=== PATIENT | female | born 1950 | race Two or more races ===

== ENCOUNTER → 2017-11-25 | Outpatient (CLI) | payer MEDICARE | END | disposition home or self-care (01) | LOC: CFH 14:29 | PROVIDERS: ATTEND Genetic Counselor, MS | DX: N64.4 Mastodynia (principal); N63.20 Unspecified lump in the left breast, unspecified quadrant | CPT/HCPCS: 77066 ==

== ENCOUNTER → 2018-06-24 | Outpatient (CLI) | payer MEDICARE | END | disposition home or self-care (01) | LOC: CFH 07:19 | PROVIDERS: ATTEND Nurse Practitioner Family | DX: K57.32 Diverticulitis of large intestine without perforation or abscess without bleeding (principal); K76.89 Other specified diseases of liver; N95.9 Unspecified menopausal and perimenopausal disorder; M85.80 Other specified disorders of bone density and structure, unspecified site | CPT/HCPCS: 76700 ==

== ENCOUNTER → 2018-07-14 | Outpatient (CLI) | payer MEDICARE ==
[~2018-07-14] MED LIST: OMNIPAQUE 350 MG/ML, 100ML BOTTLE ONE
== END | disposition home or self-care (01) ==
LOC: EDSTATUS 06-28 10:45 → CFH 13:44 → EDSTATUS 14:15
PROVIDERS: ATTEND Nurse Practitioner Family
DX: M85.88 Other specified disorders of bone density and structure, other site (principal); N94.89 Other specified conditions associated with female genital organs and menstrual cycle; M51.36 Other intervertebral disc degeneration, lumbar region; M47.816 Spondylosis without myelopathy or radiculopathy, lumbar region
CPT/HCPCS: 74177; 77080; Q9967

== ENCOUNTER 2019-11-03 08:50 | Outpatient (CLI) | payer MEDICARE ==
[2019-11-03] MEDS ORDERED: CHOL10003 PO (09:20)
[2019-11-03] MEDS ORDERED: ENAL10TA PO (09:20)
[2019-11-03] MEDS ORDERED: oxybutynin PO (09:31)
[2019-11-03 10:06] LABS: ALANINE AMINOTRANSFERASE 28 U/L (12-78); ALBUMIN 3.8 g/dL (3.4-5.0); ANION GAP 6 mmol/L (5-15); CALCIUM 9.4 mg/dL (8.5-10.1); CHLORIDE 111 mmol/L (98-107); CREATININE 0.76 mg/dL (0.55-1.02)
[2019-11-03 10:09] LABS: ALKALINE PHOSPHATASE 72 U/L (45-117); BILIRUBIN,TOTAL 0.4 mg/dL (0.2-1.0); TOTAL PROTEIN 7.3 g/dL (6.4-8.2)
[2019-11-03 10:15] LABS: MICROSCOPIC AUTO
== END 2019-11-03 23:59 | disposition home or self-care (01) ==
LOC: STAR 08:50
PROVIDERS: ATTEND Obstetrics & Gynecology Female Pelvic Medicine and Reconstructive Surgery
DX: Z01.818 Encounter for other preprocedural examination (principal); Z11.59 Encounter for screening for other viral diseases; N93.9 Abnormal uterine and vaginal bleeding, unspecified; N81.10 Cystocele, unspecified; N81.6 Rectocele
CPT/HCPCS: 36415; 80053; 81001; 87635; 93005

== ENCOUNTER 2019-11-04 13:40 | Emergency (ER) | payer MEDICARE ==
[~2019-11-04] VITALS: Ht 157.5 cm; Wt 71.1 kg
[~2019-11-04 13:40] MED LIST changes: +CHOL10003 PO; +ENAL10TA PO; -OMNIPAQUE 350 MG/ML, 100ML BOTTLE ONE; +oxybutynin PO
--- NOTE | 2019-11-04 14:24 | NUR ---
TO ROOM FROM LOBBY. NAD.
--- NOTE | 2019-11-04 15:00 | NUR ---
PT TO US.
[2019-11-04 15:07] LABS: BASOPHILS # (AUTO) 0.02 x10^3/uL (0-0.1); BASOPHILS % (AUTO) 0 % (0-1); EOSINOPHILS # (AUTO) 0.08 x10^3/uL (0-0.4); EOSINOPHILS % (AUTO) 1 % (1-7); LYMPHOCYTES # (AUTO) 2.55 x10^3/uL (1-3.4); LYMPHOCYTES % (AUTO) 36 % (22-44); MD NO; MEAN CORPUSCULAR HEMOGLOBIN 31.1 pg (27.0-34.8); MEAN CORPUSCULAR HGB CONC 32.8 g/dL (32.4-35.8); MEAN PLATELET VOLUME 7.2 fL (7.4-10.4); MONOCYTES # (AUTO) 0.61 x10^3/uL (0.2-0.8); MONOCYTES % (AUTO) 9 % (2-9); NEUTROPHILS # (AUTO) 3.87 x10^3/uL (1.8-6.8); NEUTROPHILS % (AUTO) 54 % (42-75); PLATELET COUNT 269 x10^3/uL (130-400); RED BLOOD COUNT 4.47 x10^6/uL (3.82-5.3); RED CELL DISTRIBUTION WIDTH 13.3 % (9.6-15.2)
[2019-11-04 15:19] LABS: ALANINE AMINOTRANSFERASE 28 U/L (12-78); ALBUMIN 3.8 g/dL (3.4-5.0); ANION GAP 5 mmol/L (5-15); CALCIUM 9.2 mg/dL (8.5-10.1); CHLORIDE 111 mmol/L (98-107); CREATININE 0.61 mg/dL (0.55-1.02)
[2019-11-04 15:21] LABS: ALKALINE PHOSPHATASE 71 U/L (45-117); BILIRUBIN,TOTAL 0.3 mg/dL (0.2-1.0); TOTAL PROTEIN 7.1 g/dL (6.4-8.2)
--- NOTE | 2019-11-04 15:26 | NUR ---
PT TO CT.
[2019-11-04 15:33] LABS: MICROSCOPIC NOT IND
--- NOTE | 2019-11-04 15:55 | NUR ---
ALL RESULTS BACK, PT FOR RECHECK.
[2019-11-04 16:17] VITALS: BP 138/87
== END 2019-11-04 17:08 | disposition home or self-care (01) ==
LOC: ED 16:00
DX: N23 Unspecified renal colic (principal); R31.9 Hematuria, unspecified
CPT/HCPCS: 36415; 74176; 76700; 80053; 81003; 83690; 85025; 99285

== ENCOUNTER 2019-11-07 11:18 | Day surgery (SDC) | payer MEDICARE ==
[~2019-11-07] VITALS: Ht 157.5 cm; Wt 69.8 kg
[~2019-11-07 11:18] MED LIST changes: +BUPIVACAINE/PF 0.25% ONE; +GENTAMICIN 80 MG/2 ML ONE; +VANCOMYCIN 500 MG ONE
[2019-11-07 11:41] VITALS: BP 150/79
[2019-11-07] MEDS ORDERED: LACTATED RINGERS 1,000 ML IV SCH (11:45)
[2019-11-07] MEDS ORDERED: CHLORHEXIDINE 15 ML UDC MM ONE (12:00)
[2019-11-07] MEDS ORDERED: DIAZEPAM 5 MG/ML, 2ML IVPush PRN (13:30)
[2019-11-07] MEDS ORDERED: MIDAZOLAM 1 MG/ML, 2ML IV PRN (13:30)
[2019-11-07] MEDS ORDERED: DIPHENHYDRAMINE 50 MG/ML, 1ML IVPush PRN (13:30)
[2019-11-07] MEDS ORDERED: HYDROmorphone 1 MG/ML, 1ML INJ IVPush PRN (13:30)
[2019-11-07] MEDS ORDERED: MEPERIDINE/PF 25MG/0.5ML IVPush PRN (13:30)
[2019-11-07] MEDS ORDERED: FENTANYL PF 100 MCG/2ML IV PRN (13:30)
[2019-11-07] MEDS ORDERED: LABETALOL 5MG/ML, 20ML IV PRN (13:30)
[2019-11-07] MEDS ORDERED: LORazepam 2 MG/ML, 1ML IVPush PRN (13:30)
[2019-11-07] MEDS ORDERED: HALOPERIDOL 5 MG/ML IV PRN (13:30)
[2019-11-07] MEDS ORDERED: KETOROLAC 30 MG/1 ML IV PRN (13:30)
[2019-11-07] MEDS ORDERED: ONDANSETRON 2MG/ML, 2ML IVPush PRN (13:30)
[2019-11-07] MEDS ORDERED: ALBUTEROL/IPRATROPIUM 2.5MG/0.5MG, 3 ML NPPB PRN (13:30)
[2019-11-07] MEDS ORDERED: HYDROcodone/APAP 7.5-325MG/15ML UDC PO PRN (13:30)
[2019-11-07] MEDS ORDERED: ACETAMINOPHEN 325 MG TABLET PO PRN (13:30)
[2019-11-07] MEDS ORDERED: OXYcodone 5 MG/5 ML ORAL.SOL UDC PO PRN (13:30)
[2019-11-07] MEDS ORDERED: METHOCARBAMOL 1,000 MG in DEXTROSE 5% 100 ML IV PRN (13:30)
[2019-11-07] MEDS ORDERED: EPHEDRINE 50 MG/ML, 1ML IVPush PRN (13:30)
[2019-11-07] MEDS ORDERED: EPHEDRINE 50 MG/ML, 1ML IM PRN (13:30)
[2019-11-07] MEDS ORDERED: METOCLOPRAMIDE 5 MG/ML, 2ML IVPush PRN (13:30)
[2019-11-07] MEDS ORDERED: hydrALAzine 20 MG/ML, 1ML IV PRN (13:30)
[2019-11-07] MEDS ORDERED: DEXAMETHASONE 4 MG/ML, 1ML ONE (13:44)
[2019-11-07] MEDS ORDERED: LIDOCAINE-MPF 2% ,5ML ONE (13:44)
[2019-11-07] MEDS ORDERED: ROCURONIUM 10MG/ML,5ML ONE (13:44)
[2019-11-07] MEDS ORDERED: PROPOFOL 10 MG/ML, 20ML ONE (13:44)
[2019-11-07] MEDS ORDERED: GLYCOPYRROLATE 0.2MG/1ML, 5ML ONE (13:44)
[2019-11-07] MEDS ORDERED: FENTANYL PF 100 MCG/2ML ONE (13:45)
[2019-11-07] MEDS ORDERED: MIDAZOLAM 1 MG/ML, 2ML ONE (13:45)
[2019-11-07] MEDS ORDERED: CEFAZOLIN 1,000 MG ONE (14:54)
== END 2019-11-07 17:10 | disposition home or self-care (01) ==
LOC: OUT 11:18
PROVIDERS: ATTEND Obstetrics & Gynecology Female Pelvic Medicine and Reconstructive Surgery
DX: N81.89 Other female genital prolapse (principal); N39.46 Mixed incontinence; R10.2 Pelvic and perineal pain; N81.11 Cystocele, midline; N81.6 Rectocele; N81.5 Vaginal enterocele; I10 Essential (primary) hypertension; Z79.899 Other long term (current) drug therapy; Z90.710 Acquired absence of both cervix and uterus
CPT/HCPCS: 57265; 57282; 57288; C1771; J0690; J1100; J1580; J2250; J2704; J3010; J3370; J3490; J7120

== ENCOUNTER → 2019-12-15 | Outpatient (CLI) | payer MEDICARE ==
[~2019-12-15] MED LIST changes: -BUPIVACAINE/PF 0.25% ONE; -ENAL10TA PO; +ENAL10TA9 PO; -GENTAMICIN 80 MG/2 ML ONE; +REGADENOSON 0.4 MG/5 ML SYRINGE ONE; +SINCALIDE (KINEVAC) 5 MCG ONE; -VANCOMYCIN 500 MG ONE
== END | disposition home or self-care (01) ==
LOC: RAD 12-02 11:00
PROVIDERS: ATTEND Genetic Counselor, MS
DX: K82.8 Other specified diseases of gallbladder (principal)
CPT/HCPCS: 78227; A9537; J2805; J2785